=== PATIENT | female | born 1970 | race Caucasian/White ===

== ENCOUNTER 2017-11-26 13:01 | Day surgery (SDC) | payer BC ==
[2017-11-26] MEDS ORDERED: LIDOCAINE 2% MDV (20MG/ML) 20ML VIAL IV ONE (13:02)
[2017-11-26] MEDS ORDERED: FENTANYL PF 100MCG/2ML VIAL IV ONE (13:02)
[2017-11-26] MEDS ORDERED: PROPOFOL 10 MG/ML VIAL IV ONE (13:02)
--- NOTE | 2017-11-27 15:40 | Operative Note ---
DATE OF SURGERY: 11/26/2017 REFERRING PROVIDER: Kevin Verduzco DO PREOPERATIVE DIAGNOSIS: Diarrhea and dyspepsia. POSTOPERATIVE DIAGNOSES: 1. Normal upper endoscopy, rule out occult celiac, rule out occult H pylori. 2. Normal colon, rule out occult microscopic colitis. OPERATION: 1. ESOPHAGOGASTRODUODENOSCOPY with biopsy. 2. COLONOSCOPY with biopsy. Preparation Quality: Excellent. Estimated Blood Loss: Minimal. Samples Obtained: 1. Random duodenum. 2. Random gastric. 3. Random colon. PROCEDURE: After informed consent was obtained, the patient was placed in the left lateral decubitus position in the endoscopy suite, sedated and monitored by the Department of Anesthesia. Once sedated, a well-lubricated ARR789 gastroscope was placed in the posterior oropharynx and under direct visualization passed to the proximal esophagus. The endoscope was advanced to the proximal, mid and distal esophagus. The esophagus was unremarkable. The GE junction was unremarkable. The squamocolumnar border appeared normal. The gastric body, antrum, pylorus, duodenal bulb and sweep were free of inflammatory changes, ulcers, erosions, or mass lesions. Random duodenal and random gastric biopsies were obtained. J-turn views of the proximal stomach were unrevealing. The endoscope was then straightened and retracted from the patient with no new findings noted. Digital rectal exam revealed no palpable mass. A well-lubricated PCF-190 colonoscope was inserted into the rectum and advanced to the cecum. The preparation quality was excellent. The cecum, terminal ileum, ascending colon, transverse colon, descending colon, sigmoid colon, and rectum were free from inflammatory changes, mass lesions or polyps. Forward and J-turn views of the rectum and anorectum were unrevealing. The endoscope was straightened, the rectal ampulla deflated and the endoscope was removed. RECOMMENDATIONS: Will await tissue histology, but perhaps the patient would benefit from treatment for irritable bowel depending on the biopsy results. She should undergo repeat colonoscopy in 10 years. As always, thank you for allowing me to participate in the health care of your patients. CC: Kevin Verduzco DO [facility]
== END 2017-11-26 14:52 | disposition home or self-care (01) ==
LOC: HOP 13:01
PROVIDERS: ATTEND Internal Medicine Gastroenterology
DX: R19.7 Diarrhea, unspecified (principal); R10.13 Epigastric pain
CPT/HCPCS: 45380; 43239; 00813; J3010